=== PATIENT | male | born 1970 | race Caucasian/White ===

== ENCOUNTER 2019-03-08 17:26 | Emergency (ER) | payer OTHER ==
[~2019-03-08] VITALS: Ht 188 cm; Wt 113.9 kg
--- NOTE | 2019-03-08 17:48 | NUR ---
BIB SELF C/O R NECK PAIN AND SWELLING, PT IS AAOX4, NOT IN RESPIRATORY DISTRESS, HOOKED TO MONITOR, KEPT RESTED AND COMFORTABLE, WILL CONTINUE TO MONITOR.
--- NOTE | 2019-03-08 18:02 | NUR ---
AT BEDSIDE FOR EVAL.
--- NOTE | 2019-03-08 18:26 | NUR ---
IV LINE ESTABLISHED, BLOOD DRAWN AND SENT TO LAB.
[2019-03-08 18:28] LABS: BASOPHILS # (AUTO) 0.1 /CMM (0.0-0.2); BASOPHILS % (AUTO) 1.4 % (0.0-2.0); EOSINOPHILS % (AUTO) 3.1 % (0.0-6.0); HEMATOCRIT 40 % (39-51); HEMOGLOBIN 14.2 g/dL (13.5-17.5); LYMPHOCYTES # (AUTO) 2.7 /CMM (0.8-4.8); LYMPHOCYTES % (AUTO) 37.1 % (20.0-44.0); MEAN CORPUSCULAR HGB CONC 35 g/dl (31.0-36.0); MEAN CORPUSCULAR VOLUME 94 fL (80-96); MONOCYTES # (AUTO) 0.8 /CMM (0.1-1.30); MONOCYTES % (AUTO) 11.1 % (2.0-12.0); NEUTROPHILS # (AUTO) 3.4 /CMM (1.8-8.9); NEUTROPHILS % (AUTO) 47.3 % (43.0-81.0); PLATELET COUNT (AUTO) 210 /CMM (150-450); WHITE BLOOD COUNT (AUTO) 7.2 K/uL (4.3-11.0)
[2019-03-08 18:38] LABS: POTASSIUM 3.9 mmol/L (3.5-5.1)
--- NOTE | 2019-03-08 18:45 | NUR ---
PT IS WHEELED TO CT SCAN VIA WHEELCHAIR
[2019-03-08] MEDS ORDERED: IV NS 0.9% 250 ML IV ONE (18:47)
[2019-03-08] MEDS ORDERED: IOHEXOL-300 100 ML VIAL IV ONE (18:47)
[2019-03-08] MEDS ORDERED: CT SWABBABLE VALVE TRANS SET 1 EA INFUS.SET MC ONE (18:47)
--- NOTE | 2019-03-08 19:18 | NUR ---
REPORT GIVEN TO KAE MARTEL FOR EDWARD.
--- NOTE | 2019-03-08 19:57 | NUR ---
Patient discharged to home in stable condition. Written and verbal after care instructions given. Patient verbalizes understanding of instruction. IV removed. Catheter intact and site benign. Pressure and 4x4 applied to site. No bleeding noted. PT ambulatory with a steady gait.
[2019-03-08 19:59] VITALS: BP 122/80
== END 2019-03-08 20:01 | disposition home or self-care (01) ==
LOC: ER 17:30
DX: C11.9 Malignant neoplasm of nasopharynx, unspecified (principal)
CPT/HCPCS: 36415; 70491; 80048; 85025; 85730; 99284; J7050; Q9967